=== PATIENT | female | born 1980 | race Caucasian/White ===

== ENCOUNTER 2017-06-05 10:59 | Inpatient (IN) | payer OTHER ==
[2017-06-05] VITALS (11 sets, daily range): BP systolic 109–133; BP diastolic 62–87
[~2017-06-05] VITALS: Ht 177.8 cm; Wt 93.9 kg
[~2017-06-05 10:59] MED LIST: ANAPROX DS550 MG PO; BACTRIM DS 8001 TA1 PO; BIRTH CONTROL1 EAC1 PO; CIPRO250 MG PO; CIPROFLOXACIN500 MG PO; CLARITIN10 MG PO; DIFLUCAN150 MG PO; EFFEXOR XR37.5 M1 PO; FLONASE 0.05% 121 EA NAS; KEFLEX 500 MG E2 CAP PO; MACROBID100 M1 PO; MEDROL DOSEPAK4 MG PO; MOTRIN800 MG PO; Motrin,Rufen800 MG PO; PYRIDIUM200 MG PO; TOPROL XL100 MG PO; TOPROL XL25 MG PO; VICODIN ES 7501 TAB PO; ZESTRIL30 M1 PO; ZITHROMAX Z PA250 MG PO
[2017-06-05 11:29] LABS: BILIRUBIN NEGATIVE (NEGATIVE); BLOOD NEGATIVE (NEGATIVE); CLARITY SL CLOUDY (CLEAR); COLOR YELLOW (YELLOW); GLUCOSE NEGATIVE (NEGATIVE); KETONE NEGATIVE (NEGATIVE); LEUKO ESTERASE TRACE (NEGATIVE); NITRITE POSITIVE (NEGATIVE); PH 5.5 (5.0-9.0); UROBILINOGEN 0.2 E.U./dl (0.2-1.0)
[2017-06-05 11:36] LABS: BACTERIA 4+; WBC 21-30 wbc/hpf (0-5)
[2017-06-05 12:04] LABS: BASO % 0.1 % (0.0-1.0); EOS % 0.1 % (1.0-4.0); HEMATOCRIT 43.4 % (37.0-47.0); HEMOGLOBIN 14.8 g/dl (12.0-16.0); LYMPH # 2.8 10*3/uL (1.3-4.4); LYMPH % 12.8 % (27.0-41.0); MEAN CELL VOLUME 82.2 fl (81.0-99.0); MEAN CORPUSCULAR HGB CONC 34.1 g/dl (33.0-37.0); MEAN PLATELET VOLUME 8.3 fl (9.6-12.3); MONO # 1.1 10*3/uL (0.1-1.0); MONO % 5.2 % (3.0-9.0); NEUT # 17.6 10*3/uL (2.3-7.9); NEUT % 81.1 % (47.0-73.0); PLATELET COUNT AUTOMATED 311 10*3/uL (130-400); RED BLOOD COUNT 5.28 10*6/uL (4.10-5.10); RED CELL DISTRI WIDTH 14.3 % (0-14.5); WHITE BLOOD COUNT 21.7 10*3/uL (4.8-10.8)
[2017-06-05 12:28] LABS: ALBUMIN 3.8 gm/dl (3.1-4.5); ALKALINE PHOSPHATASE 58 U/L (45-117); BUN 17 mg/dl (7-24); CHLORIDE 96 mmol/L (98-107); CREATININE 1.02 mg/dL (0.55-1.02); LIPASE 93 U/L (73-393); POTASSIUM 3.2 mmol/L (3.5-5.1); SGOT/AST 17 IU/L (3-35); SGPT/ALT 28 U/L (12-78); SODIUM 132 mmol/L (136-145); TOTAL PROTEIN 8.1 gm/dL (6.4-8.2)
[2017-06-05 12:29] LABS: BETA-HCG, QUANT < 1.0 mIU/mL (1-3)
[2017-06-06] VITALS: BP 122/84
[2017-06-06 03:34] VITALS: BP 115/64
[2017-06-06 07:26] LABS: BASO % 0.1 % (0.0-1.0); HEMATOCRIT 37.9 % (37.0-47.0); HEMOGLOBIN 12.5 g/dl (12.0-16.0); LYMPH # 1.3 10*3/uL (1.3-4.4); LYMPH % 9.1 % (27.0-41.0); MEAN CELL VOLUME 86.3 fl (81.0-99.0); MEAN CORPUSCULAR HGB 28.5 pg (27.0-31.0); MEAN PLATELET VOLUME 8.4 fl (9.6-12.3); MONO # 0.5 10*3/uL (0.1-1.0); MONO % 3.5 % (3.0-9.0); NEUT # 12.6 10*3/uL (2.3-7.9); NEUT % 86.7 % (47.0-73.0); PLATELET COUNT AUTOMATED 245 10*3/uL (130-400); RED BLOOD COUNT 4.39 10*6/uL (4.10-5.10); RED CELL DISTRI WIDTH 14.4 % (0-14.5); WHITE BLOOD COUNT 14.6 10*3/uL (4.8-10.8)
[2017-06-06 07:33] LABS: BUN 12 mg/dl (7-24); CHLORIDE 102 mmol/L (98-107); CREATININE 0.94 mg/dL (0.55-1.02); POTASSIUM 3.9 mmol/L (3.5-5.1); SODIUM 137 mmol/L (136-145)
[2017-06-06 07:37] LABS: CHOLESTEROL 178 mg/dL (<200); HDL CHOLESTEROL 44 mg/dl (40-60); LDL CHOLESTEROL 98 mg/dL (9-159); TRIGLYCERIDES 179 mg/dl (<150); VLDL CHOLESTEROL 36 mg/dL (6-40)
[2017-06-06 07:47] LABS: THYROID STIM HORMONE (HS) 0.669 uIU/ml (0.358-4.75)
[2017-06-06 08:00] VITALS: BP 124/78
[2017-06-06 08:08] LABS: ACT PARTIAL THROMBO TIME 24.7 SECONDS (20.8-31.5)
[2017-06-06 08:46] LABS: VITAMIN D, 25-HYDROXY 14.6 ng/mL (30-100)
[2017-06-06 12:00] VITALS: BP 111/67
[2017-06-06 16:00] VITALS: BP 120/76
[2017-06-06 20:00] VITALS: BP 122/72
[2017-06-07] VITALS: BP 109/64
[2017-06-07 06:57] LABS: BASO % 0.5 % (0.0-1.0); EOS # 0.1 10*3/uL (0.0-0.4); EOS % 0.7 % (1.0-4.0); HEMATOCRIT 36.8 % (37.0-47.0); HEMOGLOBIN 12.1 g/dl (12.0-16.0); LYMPH # 3.5 10*3/uL (1.3-4.4); LYMPH % 41.1 % (27.0-41.0); MEAN CELL VOLUME 86.8 fl (81.0-99.0); MEAN CORPUSCULAR HGB 28.5 pg (27.0-31.0); MEAN CORPUSCULAR HGB CONC 32.9 g/dl (33.0-37.0); MEAN PLATELET VOLUME 8.6 fl (9.6-12.3); MONO # 0.4 10*3/uL (0.1-1.0); MONO % 4.5 % (3.0-9.0); NEUT # 4.5 10*3/uL (2.3-7.9); NEUT % 52.7 % (47.0-73.0); PLATELET COUNT AUTOMATED 238 10*3/uL (130-400); RED BLOOD COUNT 4.24 10*6/uL (4.10-5.10); RED CELL DISTRI WIDTH 14.4 % (0-14.5); WHITE BLOOD COUNT 8.5 10*3/uL (4.8-10.8)
[2017-06-07] MEDS ORDERED: MACROBID100 M1 PO (09:12)
[2017-06-07] MEDS ORDERED: IBUPROFEN400 MG PO (09:12)
[2017-06-07] MEDS ORDERED: VICODIN 5-3001 EACH PO (10:28)
== END 2017-06-07 11:55 | disposition home or self-care (01) | DRG 854 ==
LOC: ED 10:59 → 4E 14:18 → EDHOLD 14:18 → 4E 14:38
PROVIDERS: Emergency Medicine; Internal Medicine; Internal Medicine Hospice and Palliative Medicine
PROC: 0DTJ4ZZ Resection of Appendix, Percutaneous Endoscopic Approach (ICD-10-PCS; principal; 2017-06-05)
DX: A41.9 Sepsis, unspecified organism (principal); K35.80 Unspecified acute appendicitis; E87.8 Other disorders of electrolyte and fluid balance, not elsewhere classified; E87.1 Hypo-osmolality and hyponatremia; N39.0 Urinary tract infection, site not specified; R65.20 Severe sepsis without septic shock; E87.6 Hypokalemia; F32.9 Major depressive disorder, single episode, unspecified; E55.9 Vitamin D deficiency, unspecified; I10 Essential (primary) hypertension; F17.210 Nicotine dependence, cigarettes, uncomplicated; Z79.899 Other long term (current) drug therapy; Z91.040 Latex allergy status; Z91.010 Allergy to peanuts; Z88.2 Allergy status to sulfonamides; Z71.6 Tobacco abuse counseling; Z88.8 Allergy status to other drugs, medicaments and biological substances; Z91.018 Allergy to other foods; Z80.0 Family history of malignant neoplasm of digestive organs; Z82.49 Family history of ischemic heart disease and other diseases of the circulatory system

== ENCOUNTER → 2018-05-02 | Outpatient (CLI) | payer OTHER ==
[~2018-05-02] MED LIST changes: +IBUPROFEN400 MG PO; +VICODIN 5-3001 EACH PO
== END | disposition home or self-care (01) ==
LOC: RAD 16:55
DX: M54.32 Sciatica, left side (principal); M25.552 Pain in left hip

== ENCOUNTER → 2020-02-01 | Outpatient (CLI) | payer BC ==
[2020-02-01 10:18] LABS: ALBUMIN 3.9 gm/dl (3.1-4.5); ALKALINE PHOSPHATASE 95 U/L (45-117); BUN 8 mg/dl (7-24); CHLORIDE 100 mmol/L (98-107); CHOLESTEROL 280 mg/dL (<200); CREATININE 0.94 mg/dL (0.55-1.02); HDL CHOLESTEROL 34 mg/dl (40-60); LDL CHOLESTEROL 209 mg/dL (9-159); POTASSIUM 3.9 mmol/L (3.5-5.1); SGOT/AST 284 IU/L (3-35); SGPT/ALT 226 U/L (12-78); SODIUM 134 mmol/L (136-145); TOTAL PROTEIN 8.5 gm/dL (6.4-8.2); TRIGLYCERIDES 187 mg/dl (<150); VLDL CHOLESTEROL 37 mg/dL (6-40)
== END | disposition home or self-care (01) ==
LOC: LAB 09:29
PROVIDERS: ATTEND Nurse Practitioner Primary Care
DX: E11.65 Type 2 diabetes mellitus with hyperglycemia (principal); K76.0 Fatty (change of) liver, not elsewhere classified; R74.8 Abnormal levels of other serum enzymes

== ENCOUNTER → 2020-07-21 | Outpatient (CLI) | payer BC | END | disposition home or self-care (01) | LOC: RAD 12:04 | PROVIDERS: ATTEND Nurse Practitioner Primary Care | DX: M50.31 Other cervical disc degeneration, high cervical region (principal); M48.02 Spinal stenosis, cervical region ==